=== PATIENT | female | born 1955 | race Caucasian/White ===

== ENCOUNTER → 2022-11-14 | Outpatient (CLI) | payer MEDICARE ==
[~2022-11-14] MED LIST: HYDR-1231 PO
--- NOTE | 2022-11-14 15:58 | Diagnostic Imaging Report ---
INDICATION: Facial trauma. FINDINGS: AP, lateral and oblique views of the orbits do not show any orbital wall fracture. The paranasal sinuses are clear. IMPRESSION: Negative orbits. Dictated by: Dictated on workstation # [id number]
== END ==
LOC: RAD 14:43
PROVIDERS: ATTEND Family Medicine
DX: S09.93XA Unspecified injury of face, initial encounter (principal); W19.XXXA Unspecified fall, initial encounter
CPT/HCPCS: 70200